=== PATIENT | male | born 1945 | race Caucasian/White ===

== ENCOUNTER 2023-12-09 10:57 | Emergency (ER) | payer MEDICARE, OTHER ==
[~2023-12-09] VITALS: Ht 180.3 cm; Wt 93.4 kg
[2023-12-09 14:23] VITALS: BP 128/72; TEMP 98.3; O2SAT 100
== END 2023-12-09 14:28 | disposition short-term general hospital (02) ==
LOC: ER 11:12
DX: Z45.2 Encounter for adjustment and management of vascular access device (principal)
CPT/HCPCS: 71045-TC

== ENCOUNTER 2023-12-10 13:10 | Emergency (ER) | payer MEDICARE, OTHER ==
[~2023-12-10] VITALS: Ht 180.3 cm; Wt 93.4 kg
[2023-12-10 14:44] VITALS: TEMP 97.9
[2023-12-11 04:22] VITALS: BP 126/71; O2SAT 99
== END 2023-12-11 04:23 | disposition home or self-care (01) ==
LOC: ER 13:32
DX: Z45.2 Encounter for adjustment and management of vascular access device (principal); M86.9 Osteomyelitis, unspecified; F03.90 Unspecified dementia, unspecified severity, without behavioral disturbance, psychotic disturbance, mood disturbance, and anxiety; E11.9 Type 2 diabetes mellitus without complications; Z86.79 Personal history of other diseases of the circulatory system
CPT/HCPCS: 36569 ×2; 99285; 71045; C1769 ×2

== ENCOUNTER 2024-01-18 17:32 | Emergency (ER) | payer MEDICARE, OTHER ==
[~2024-01-18] VITALS: Ht 165.1 cm; Wt 68.0 kg
[2024-01-18 17:43] VITALS: BP 119/66; TEMP 98.3; O2SAT 98
== END 2024-01-18 20:10 ==
LOC: ER 17:41
DX: T82.594A Other mechanical complication of infusion catheter, initial encounter (principal); F03.90 Unspecified dementia, unspecified severity, without behavioral disturbance, psychotic disturbance, mood disturbance, and anxiety; I48.91 Unspecified atrial fibrillation; E11.9 Type 2 diabetes mellitus without complications
CPT/HCPCS: 71045-TC